=== PATIENT | male | born 1940 | race Caucasian/White ===

== ENCOUNTER 2019-05-04 13:30 | Inpatient (IN) | payer OTHER ==
[~2019-05-04] VITALS: Ht 172.7 cm; Wt 81.2 kg
--- NOTE | 2019-05-04 13:33 | NUR ---
PATIENT BIB EMS TO BED 02
[2019-05-04 13:36] VITALS: BP 126/78
--- NOTE | 2019-05-04 13:58 | NUR ---
PT DEBBIE FROM [facility] FOR FURTHER EVALUATION OF ABD PAIN X 2 DAYS. PT DENIES N/V/D; DENIES FEVER. AFEBRILE AT THIS TIME. LBM 05/04/19. VSS MED HX:HEPATIC CELLULAR CARCINOMA, PROSTATE CANCER, LIVER CIRRHOSIS, A-FIB, INGUINAL HERNIA, DVT, GASTRIC ULCERS, LEFT CLAVICULAR MASS. ALLERGIES: NKA
[2019-05-04] MEDS ORDERED: MORPHINE SULFATE 4 MG/ML SYR IVP ONE (14:20)
[2019-05-04 14:48] LABS: BASOPHILS # (AUTO) 0.1 K/uL (0.00-0.22); BASOPHILS % (AUTO) 0.8 % (0.0-2.0); EOSINOPHILS # (AUTO) 0.1 K/uL (0-0.4); HEMATOCRIT 34.6 % (36-52); HEMOGLOBIN 11.6 g/dL (12.0-18.0); LYMPHOCYTES # (AUTO) 0.9 K/uL (2.0-11.5); LYMPHOCYTES % (AUTO) 8.4 % (20.5-51.1); MEAN CORPUSCULAR HEMOGLOBIN 31 pg (27-31); MEAN CORPUSCULAR HGB CONC 33 g/dL (33-37); MEAN CORPUSCULAR VOLUME 92.3 fL (80-94); MONOCYTES # (AUTO) 1.1 K/uL (0.8-1.0); MONOCYTES % (AUTO) 10.4 % (1.7-9.3); NEUTROPHILS # (AUTO) 8.3 K/uL (1.8-7.7); NEUTROPHILS % (AUTO) 79.4 % (42.2-75.2); PLATELET COUNT (AUTO) 162 K/uL (140-450); RED BLOOD CELL COUNT(AUTO) 3.75 MIL/uL (4.20-6.10); RED CELL DISTRIBUTION WIDTH 19.9 % (11.6-13.7); WHITE BLOOD COUNT (AUTO) 10.4 K/uL (4.8-10.8)
[2019-05-04 15:08] LABS: ALBUMIN 1.5 g/dL (3.4-5.0); ANION GAP 12.5 (8-16); ASPARTATE AMINOTRANSFERASE 109 U/L (15-37); CARBON DIOXIDE 28.7 mmol/L (21-32); CHLORIDE 102 mmol/L (98-107); CREATININE 1.1 mg/dL (0.7-1.3); GLUCOSE 99 mg/dL (74-106); LIPASE 123 U/L (73-393); SODIUM SERUM 141 mmol/L (136-145); TOTAL BILIRUBIN 3.8 mg/dL (0.0-1.0); UREA NITROGEN, BLOOD 12 mg/dL (7-18)
[2019-05-04] MEDS ORDERED: NACL 0.9% 500 ML IV ONE (15:25)
[2019-05-04 15:30] LABS: POTASSIUM 2.2 mmol/L (3.5-5.1)
[2019-05-04] MEDS ORDERED: KCL 20 MEQ/WATER INJ PREMIX 200 ML IV ONE (17:15)
[2019-05-04] MEDS ORDERED: DILTIAZEM 25 MG/5 ML VIAL IVP ONE (17:50)
[2019-05-04 19:10] LABS: APPEARANCE,URINE CLEAR (CLEAR); BILIRUBIN,URINE NEGATIVE (NEGATIVE); BLOOD, URINE NEGATIVE (NEGATIVE); COLOR,URINE YELLOW (YELLOW); LEUKOCYTE ESTERASE ,URINE NEGATIVE (NEGATIVE); NITRITE, URINE NEGATIVE (NEGATIVE); UGLUCOSE NEGATIVE (NEGATIVE)
[2019-05-04 19:25] VITALS: BP 105/78
--- NOTE | 2019-05-04 19:25 | NUR ---
RECEIVED FROM ER VIA uiu. PT AWAKE, ALERT ORIENTED X 4. PT ON BEDREST. SKIN ASSESSMENT DONE W/ SKIN TEAR ON RIGHT FOREARM PRIOR TO ADMISSION AT UNIT NOTED. PICTURE TAKEN. H AND PHYSICAL DONE. W/ ONGOING K CL INFUSING TOTAL OF 40 MEQ'S PER ER NURSE. ORIENTED TO UNIT. BED IN LOWEST POSITION. FALL RISK. BED ALARM ON. WILL CONTINUE TO MONITOR Addendum: 05/05/19 at 0408 by Letty Baker RN AMEND TO ALERT ORIENTED X X 4 W/ SOME PERIODS OF FORGETFULNESS.
--- NOTE | 2019-05-04 19:26 | NUR ---
NOTED LEFT CLAVICULAR MASS/LUMP AND MULTIPLE RED BRUISES ON BILATERAL UE
--- NOTE | 2019-05-04 19:34 | NUR ---
Patient admitted to Telemetry Room 123A. Belongings list completed. Report to PARADISE Saenz. Pt in stable condition; transfer of care at this time.
--- NOTE | 2019-05-04 20:00 | NUR ---
1ST ATTEMPT TO CALL FUR FEEDER, NO RESPONSE
--- NOTE | 2019-05-04 21:00 | NUR ---
SCD DEVICE PLACED. PT TURNED AND CLEANED. PT ABLE TO HELP TURNING.
--- NOTE | 2019-05-04 21:00 | NUR ---
2ND ATTEMPT TO CALL TELEVISION EQUIPMENT OPERATOR; DR. ALEXANDRE AT [phone] AND TALKED TO AINSLEY, ANSWERING SERVICE.AWAITING RESPONSE
[2019-05-04] MEDS ORDERED: HYDROcodone/APAP 5/325 MG 1 TAB TAB PO PRN (21:05)
[2019-05-04] MEDS ORDERED: ACETAMINOPHEN 325 MG TAB PO PRN (21:05)
[2019-05-04] MEDS ORDERED: LORazepam 2 MG/ML VIAL IVP PRN (21:05)
[2019-05-04] MEDS ORDERED: ONDANSETRON 4 MG/2 ML VIAL IVP PRN (21:05)
[2019-05-04 22:27] LABS: CREATINE KINASE MB 1.2 ng/mL (0-3.6)
--- NOTE | 2019-05-04 23:00 | NUR ---
DR. KARO PEARSON RETURNED THE CALL HIMSELF. MG 1. 3 WAS REPORTED PER READING EARLIER AT THE ER BUT THERE WAS NO MGT FOR THIS. HE ORDERED: 4000MG/100 ML MG SO4 IV ONCE; AND MG OXIDE 400MG 1 TAB PO DAILY; AND D5NS AT 75 ML/HR. ORDERS CARRIED OUT
[2019-05-04] MEDS: HYDROcodone/APAP 5/325 MG 1 TAB TAB PO PRN (23:02)
--- NOTE | 2019-05-04 23:02 | NUR ---
PT' C/O OF PAIN LEFT ABDOMEN, WITH 6/10.MEDICATED W/ NORCO
[2019-05-04] MEDS: DEXT 5% /NACL 0.9% 1,000 ML IV SCH (23:25)
[2019-05-05] VITALS: BP 138/92
[2019-05-05] MEDS: MAG SULF 2000 MG/WATER PREMIX 100 ML IV SCH ×2 (00:12→01:28)
--- NOTE | 2019-05-05 01:12 | NUR ---
ERROR MADE IN PYXIS DOCUMENTATION, INFORMED THE CONTINUOUS MINING MACHINE COAL MINER AND CHARGE NURSE. I GOT 1 BAG FROM THE TELE UNIT PYXIS INSTEAD OF 2 BAGS. RADHA CHARGE NURSE GOT 1 BAG FROM THE MED SURG PYXIS. CONTINUOUS MINING MACHINE COAL MINER, [place] WENT TO THE TELE PYXIS AND GOT THE 3 BAGS OF MAGNESIUM SULFATE 2 GMS/50 ML EACH DISCREPANCIES IN THE PYXIS TO BE FIXED IN THE A.M. pLEASE NOTE THAT ONLY 2 BAGS OF 2000MG/50 ML (TOTAL OF 4000MG/100 ML) WAS GIVEN TO THE PT
[2019-05-05 04:00] VITALS: BP 133/95
--- NOTE | 2019-05-05 04:08 | NUR ---
PT KEPT ASKING ABOUT HIS SPECTROSCOPIST BUT SPECTROSCOPIST IS AT THE [facility] RIGHT NOW. CALLED [facility] LU[facility] AND TAKLED TO HER NURSE, DANGELO
--- NOTE | 2019-05-05 06:11 | NUR ---
PT SLEEPING, NO COMPLAINTS AT THIS TIME. PT IN STABLE CONDITION. ON TELE MONITOR FOR HIS UNCONTROLLED AFIB
--- NOTE | 2019-05-05 07:20 | NUR ---
Received report from pm nurse Letty. Pt resting in bed, awake, verbally responsive, respirations even & nonlabored in room air. Right AC IV intact with ongoing D5NS @ 75ml/hr. Call light within reach. Pt requesting for soda. FNS notified.
[2019-05-05 07:46] LABS: ANION GAP 8.2 (8-16); CARBON DIOXIDE 30.6 mmol/L (21-32); CHLORIDE 103 mmol/L (98-107); CREATININE 1.2 mg/dL (0.7-1.3); GLUCOSE 120 mg/dL (74-106); SODIUM SERUM 139 mmol/L (136-145); UREA NITROGEN, BLOOD 15 mg/dL (7-18)
[2019-05-05 07:48] LABS: POTASSIUM 2.8 mmol/L (3.5-5.1)
[2019-05-05 07:49] LABS: BASOPHILS % (AUTO) 0.4 % (0.0-2.0); EOSINOPHILS # (AUTO) 0.2 K/uL (0-0.4); EOSINOPHILS % (AUTO) 1.6 % (0.0-4.0); HEMATOCRIT 32.3 % (36-52); HEMOGLOBIN 11.2 g/dL (12.0-18.0); LYMPHOCYTES % (AUTO) 9.5 % (20.5-51.1); MEAN CORPUSCULAR HEMOGLOBIN 32 pg (27-31); MEAN CORPUSCULAR HGB CONC 35 g/dL (33-37); MEAN CORPUSCULAR VOLUME 93.3 fL (80-94); MONOCYTES # (AUTO) 1.2 K/uL (0.8-1.0); MONOCYTES % (AUTO) 11.6 % (1.7-9.3); NEUTROPHILS # (AUTO) 8.2 K/uL (1.8-7.7); NEUTROPHILS % (AUTO) 76.9 % (42.2-75.2); PLATELET COUNT (AUTO) 175 K/uL (140-450); RED BLOOD CELL COUNT(AUTO) 3.46 MIL/uL (4.20-6.10); RED CELL DISTRIBUTION WIDTH 19.7 % (11.6-13.7); WHITE BLOOD COUNT (AUTO) 10.6 K/uL (4.8-10.8)
[2019-05-05 08:37] LABS: MAGNESIUM 2.5 mg/dL (1.8-2.4); PHOSPHORUS 3.3 mg/dL (2.5-4.9)
[2019-05-05] MEDS: MAGNESIUM OXIDE 400 MG TAB PO SCH (08:37)
[2019-05-05] MEDS: KCL 20 MEQ/WATER INJ PREMIX 200 ML IV SCH ×2 (08:39→11:00)
--- NOTE | 2019-05-05 08:45 | NUR ---
Paged Dr. Mike Clark for potassium level of 2.8. Awaiting call back. Pt currently eating orange slices for breakfast. Offered pancakes & oatmeal, pt refused and states he has no appetite. No c/o discomfort at this time. Call light within reach.
--- NOTE | 2019-05-05 09:30 | NUR ---
Received phone call from Kristen Hearn asking about pt status. Brief update provided.
[2019-05-05 09:54] VITALS: BP 130/74
[2019-05-05] MEDS ORDERED: METO25TA PO (11:37)
[2019-05-05] MEDS ORDERED: FURO-572 PO (11:37)
[2019-05-05] MEDS ORDERED: MEGE40SU3 PO (11:37)
[2019-05-05] MEDS ORDERED: PANT40EC PO (11:37)
[2019-05-05] MEDS ORDERED: SUCR1TAB35 PO (11:37)
--- NOTE | 2019-05-05 11:45 | NUR ---
Pt requesting frequently for Coca-Cola. Provided with soda from kitchen. Pt verbalized he wants "Coca-Cola" brand. Pt contact persons Kristen & Shailesh notified, states they are not able to visit today but will come by tomorrow.
[2019-05-05 12:00] VITALS: BP 136/85
--- NOTE | 2019-05-05 12:25 | NUR ---
PATIENT HAS BEEN SCREENED AND CATEGORIZED MODERATE NUTRITION RISK. PATIENT WILL BE SEEN WITHIN 3-5 DAYS OF ADMISSION. 05/07/19 - 05/09/19 AMANDA CHANG MBA, RD
[2019-05-05] MEDS: DEXT 5% /NACL 0.9% 1,000 ML IV SCH (13:38)
--- NOTE | 2019-05-05 13:50 | NUR ---
Dr. Clark at bedside to assess pt. Pt aaox4, answers questions appropriately.
--- NOTE | 2019-05-05 14:28 | NUR ---
Pt aaox4, able to verbalized needs. Pt states he wants to be full code. Pt able to verbalized understanding that full code means CPR, intubation & defibrillation may be used accordingly. Hospital copy of POLST not signed by pt. Dr. Clark notified.
[2019-05-05 16:00] VITALS: BP 131/78
--- NOTE | 2019-05-05 17:37 | NUR ---
Pt with visitor at bedside who provided pt with few bottles of Coca-Cola & a bag of popcorn. Informed of dietary restrictions (cardiac diet). Pt & visitor verbalized understanding & agree to follow diet. Pt resting in bed, no c/o discomfort, respirations even & nonlabored. Call light within reach.
--- NOTE | 2019-05-05 19:15 | NUR ---
Bedside report given to pm nurse Renetta. Pt resting in bed, respirations even & nonlabored in room air, FLACC 0. Pt's grandson at bedside.
--- NOTE | 2019-05-05 19:16 | NUR ---
RECEIVED BEDSIDE REPORT FROM AM SHIFT RN IRMA, FOR PATIENT'S CONTINUITY OF CARE. PATIENT IS AWAKE, ALERT, TALKING TO FAMILY MEMBER AT BEDSIDE. PATIENT IS ON ROOM AIR, HAS RIGHT AC 20G IV RUNNING WITH D5NS AT 75 ML/HR. FALL PRECAUTION IS IN PLACE. BED IS IN LOW POSITION, SIDE RAILS ARE UP, AND CALL LIGHT WITHIN REACH. WILL MONITOR PATIENT THROUGHOUT SHIFT.
[2019-05-05 20:00] VITALS: BP 123/74
[2019-05-05] MEDS: PROMETH/CODEINE 6.25-10MG/5ML 5 ML UDC PO PRN (20:21)
--- NOTE | 2019-05-05 20:21 | NUR ---
PATIENT C/O COUGH AT NIGHT. REQUESTED FOR MEDICATION FOR PAIN OR COUGH. ADMINISTERED PO COUGH MEDICATION ORDERED. PATIENT TOLERATED IT WELL. VITAL SIGNS CHECKED AND CHARTED. WILL CONTINUE TO MONITOR PATIENT.
[2019-05-05 22:46] LABS: CREATINE KINASE MB 1.7 ng/mL (0-3.6)
[2019-05-05] MEDS: HYDROcodone/APAP 5/325 MG 1 TAB TAB PO PRN (23:13)
--- NOTE | 2019-05-05 23:13 | NUR ---
PATIENT C/O ABDOMINAL AREA/HERNIA AREA 03/18. ADMINISTERED PO PAIN MEDICATION ORDERED. PATIENT TOLERATED IT WELL. LIKES TO TAKE HALF FIRST AND WAIT FOR A FEW MINUTES, THEN TAKE THE OTHER HALF. WILL CONTINUE TO MONITOR PATIENT.
[2019-05-06] VITALS: BP 124/74
--- NOTE | 2019-05-06 | NUR ---
PATIENT C/O LEG DISCOMFORT. REQUESTED TO MASSAGE HIS LEGS. WHEEL POLISHER AND RN TAKE TURNS TO GIVE PATIENT MASSAGE ON BLE. HUNG NEW BAG OF D5NS RUNNING AT 75 ML/HR.
--- NOTE | 2019-05-06 00:35 | NUR ---
PATIENT REPEATEDLY TAKES OFF BREAKER TABLE WORKER AND REFUSED TO PUT IT BACK ON. EDUCATED PATIENT ON IMPORTANCE OF BREAKER TABLE WORKER, STILL REFUSED. NOTIFIED PARTY HOST/HOSTESS, AND RADIOLOGIC TECHNOLOGY INSTRUCTOR. WILL MONITOR PATIENT FREQUENTLY.
--- NOTE | 2019-05-06 02:20 | NUR ---
MADE ROUNDS. PATIENT IS AWAKE, WATCHING TV, COMPLAINING OF ITCHINESS. PER PATIENT, HE EXPERIENCES THIS EVERY SO OFTEN. NO NOTED HIVES OR ANY SKIN ABNORMALITIES, DT ITCHING. 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 WILL CONTINUE TO MONITOR PATIENT.
[2019-05-06] MEDS: PROMETH/CODEINE 6.25-10MG/5ML 5 ML UDC PO PRN ×3 (02:33→16:43)
--- NOTE | 2019-05-06 02:33 | NUR ---
PATIENT AWAKE, WATCHING TV, AND ON HIS CELL PHONE, CONTINUES TO HAVE DRY COUGH, REQUESTED FOR ANOTHER COUGH MEDICINE. ADMINISTERED PO COUGH MEDICATION ORDERED. ASSISTED VACUUM CLEANER REPAIRER FOR LINEN CHANGE. PATIENT TOLERATED IT WELL. PERFORMED BLE MASSAGE PER PATIENT'S REQUEST TO CALM DOWN RESTLESSNESS. INFORMED PATIENT THAT WE WILL ATTACH THE BAROMETERS CALIBRATOR AT 0400. PATIENT VERBALIZED UNDERSTANDING, BUT WANTS IT OFF AGAIN. COMPLAINS THAT EVERY TIME HE MOVES, IT COMES OFF.
[2019-05-06] MEDS: HYDROcodone/APAP 5/325 MG 1 TAB TAB PO PRN (03:53)
--- NOTE | 2019-05-06 03:53 | NUR ---
PATIENT C/O ABDOMINAL PAIN 03/18 WHEN COUGHING. REQUESTED FOR PAIN MEDICATION. ADMINISTERED PO PAIN MEDICATION ORDERED. PATIENT TOLERATED IT WELL. VITAL SIGNS CHECKED AND CHARTED. PATIENT REQUESTED, AND GIVEN ARM MASSAGE, PATIENT STATES THAT LEFT ARM AND BACK FEEL SORE. PATIENT KEEPS COUGHING THROUGHOUT THE NIGHT. Addendum: 05/06/19 at 0459 by Renetta Leon RN ADDITIONAL INFO: PATIENT ALSO REFUSED SCD PLACEMENT.
[2019-05-06 04:00] VITALS: BP 143/68
--- NOTE | 2019-05-06 06:39 | NUR ---
PATIENT IS AWAKE, LYING IN BED, ADMITTING PERSONNEL AT BEDSIDE. PATIENT GETTING AGITATED, RAISING VOICE, AND COMPLAINING. CAME IN TO EXPLAIN THE REASON FOR ADMITTING PERSONNEL TO BE IN HIS ROOM, AND DIVERT ATTENTION TO DE-ESCALATE ANY FURTHER SITUATION FROM HAPPENING. WILL ENDORSE TO AM SHIFT RN FOR PATIENT'S CONTINUITY OF CARE.
--- NOTE | 2019-05-06 07:31 | NUR ---
RECEIVED BEDSIDE REPORT FROM DAY SHIFT FOR PATIENT'S CONTINUITY OF CARE. PATIENT IS AWAKE, ALERT. PATIENT IS ON ROOM AIR, HAS RIGHT AC 20G IV RUNNING WITH D5NS AT 75 ML/HR. FALL PRECAUTION IS IN PLACE. BED IS IN LOW POSITION, SIDE RAILS ARE UP, AND CALL LIGHT WITHIN REACH. WILL MONITOR PATIENT THROUGHOUT SHIFT. Addendum: 05/07/19 at 0827 by Arlyn Moscoso RN PLEASE DISCARD. WRONG TIME.
--- NOTE | 2019-05-06 07:35 | NUR ---
Received bed side report from line person RN. Pt awake currently being repositioned and changed by MAJOR ACCOUNT REPRESENTATIVE. Pt not on tele monitor because pt refuses to be on tele monitor. Right AC 20G running D% NS at 755c/hr. Right forearm skin tear with adaptic dressing placed. On a cardiac diet, will continue to monitor
[2019-05-06] MEDS: MAGNESIUM OXIDE 400 MG TAB PO SCH (08:45)
--- NOTE | 2019-05-06 08:50 | NUR ---
Gave phenergan per MD order. Pt having continuous cough, non-productive. Will continue to monitor
--- NOTE | 2019-05-06 08:53 | NUR ---
pt took AM meds. pt states he has a radiation appointment at [facility] today. Pt refused blood draws this morning. will continue to monitor
--- NOTE | 2019-05-06 09:00 | NUR ---
Pt refuses to be on SCDs. Educated pt on the importance of promoting blood circulation. Pt still refuses.
[2019-05-06] MEDS ORDERED: POTASSIUM CHLORIDE 10 MEQ TABER PO SCH (10:40)
--- NOTE | 2019-05-06 10:41 | NUR ---
Per , he wants to continue home meds. Continued home meds and ordered 20meq BID.
[2019-05-06 10:47] VITALS: BP 160/85
[2019-05-06 13:37] VITALS: BP 146/95
--- NOTE | 2019-05-06 14:24 | NUR ---
Continuing home meds. Will wait for pharmacy to confirm. Called pharamcy to do blood draw on patient since he now does not refuse blood draws.
--- NOTE | 2019-05-06 14:47 | NUR ---
Blood draw done. Will wait for lab results.
[2019-05-06 15:08] LABS: BASOPHILS % (AUTO) 0.4 % (0.0-2.0); EOSINOPHILS # (AUTO) 0.2 K/uL (0-0.4); EOSINOPHILS % (AUTO) 2.2 % (0.0-4.0); HEMATOCRIT 30.6 % (36-52); HEMOGLOBIN 10.3 g/dL (12.0-18.0); LYMPHOCYTES # (AUTO) 0.7 K/uL (2.0-11.5); LYMPHOCYTES % (AUTO) 7.1 % (20.5-51.1); MEAN CORPUSCULAR HEMOGLOBIN 32 pg (27-31); MEAN CORPUSCULAR HGB CONC 34 g/dL (33-37); MEAN CORPUSCULAR VOLUME 93.6 fL (80-94); MONOCYTES % (AUTO) 10.2 % (1.7-9.3); NEUTROPHILS % (AUTO) 80.1 % (42.2-75.2); PLATELET COUNT (AUTO) 160 K/uL (140-450); RED BLOOD CELL COUNT(AUTO) 3.27 MIL/uL (4.20-6.10); RED CELL DISTRIBUTION WIDTH 19.4 % (11.6-13.7)
[2019-05-06] MEDS: DEXT 5% /NACL 0.9% 1,000 ML IV SCH ×2 (15:36)
[2019-05-06 15:46] LABS: ANION GAP 8.1 (8-16); CARBON DIOXIDE 27.4 mmol/L (21-32); CHLORIDE 104 mmol/L (98-107); CREATININE 1.1 mg/dL (0.7-1.3); GLUCOSE 142 mg/dL (74-106); POTASSIUM 3.5 mmol/L (3.5-5.1); SODIUM SERUM 136 mmol/L (136-145); UREA NITROGEN, BLOOD 12 mg/dL (7-18)
[2019-05-06] MEDS: PANTOPRAZOLE 40 MG TABEC PO SCH (16:35)
--- NOTE | 2019-05-06 16:44 | NUR ---
Gave pt phenergan PRN per MD order. Pt still having continuous cough, non-productive.
--- NOTE | 2019-05-06 16:44 | NUR ---
Pt A/O X4, denies pain, repositioned and changed. Will continue to monitor.
[2019-05-06 17:32] VITALS: BP 134/90
[2019-05-06] MEDS: SUCRALFATE 1 GM TAB PO SCH (17:54)
--- NOTE | 2019-05-06 19:30 | NUR ---
Gave bedside report to casino shift manager RN. Pt stable.
--- NOTE | 2019-05-06 19:31 | NUR ---
RECEIVED BEDSIDE REPORT FROM DAY SHIFT FOR PATIENT'S CONTINUITY OF CARE. PATIENT IS AWAKE, ALERT. PATIENT IS ON ROOM AIR, HAS RIGHT AC 20G IV RUNNING WITH D5NS AT 75 ML/HR. FALL PRECAUTION IS IN PLACE. BED IS IN LOW POSITION, SIDE RAILS ARE UP, AND CALL LIGHT WITHIN REACH. WILL MONITOR PATIENT THROUGHOUT SHIFT.
[2019-05-06 20:00] VITALS: BP 145/80
[2019-05-06] MEDS: MEGESTROL 400 MG/10 ML UDC PO SCH (21:13)
[2019-05-06] MEDS: METOPROLOL 25 MG TAB PO SCH (21:14)
[2019-05-06] MEDS: POTASSIUM CHLORIDE 10 MEQ TABER PO SCH (21:14)
[2019-05-06] MEDS: FUROSEMIDE 20 MG TAB PO SCH (21:14)
--- NOTE | 2019-05-06 21:14 | NUR ---
GIVEN SCHEDULED MEDS. PT TOLERATED WELL.
[2019-05-07] VITALS: BP 122/70
--- NOTE | 2019-05-07 | NUR ---
PT REFUSED CARAFATE. EXPLAINED BENEFIT AND RISK 3TIMES, PT STILL REFUSED.
--- NOTE | 2019-05-07 01:35 | NUR ---
LAB CALLED FOR MRSA POSITIVE NARES. ACTIVATED CONTACT PRECAUTION.
--- NOTE | 2019-05-07 03:45 | NUR ---
PT SLEEPING IN BED. NO ACUTE DISTRESS NOTED.
[2019-05-07 04:00] VITALS: BP 125/77
[2019-05-07] MEDS: DEXT 5% /NACL 0.9% 1,000 ML IV SCH (04:40)
[2019-05-07] MEDS: SUCRALFATE 1 GM TAB PO SCH ×3 (05:50→11:19)
--- NOTE | 2019-05-07 05:50 | NUR ---
PT REFUSED CARAFATE. EXPLAINED BENEFIT AND RISK 3TIMES, PT STILL REFUSED.
[2019-05-07] MEDS: PANTOPRAZOLE 40 MG TABEC PO SCH (06:47)
--- NOTE | 2019-05-07 06:47 | NUR ---
GIVEN PROTONIX DR. ORDERED. PT TOLERATED WELL. BED IN LOW POSITION. CALL LIGHT WITHIN REACH.
--- NOTE | 2019-05-07 07:29 | NUR ---
ENDORSED PT TO DAY SHIFT NURSE. PT IN STABLE CONDITION.
--- NOTE | 2019-05-07 07:30 | NUR ---
RECEIVED REPORT FROM DISCHARGING MACHINE OPERATOR NURSE.
--- NOTE | 2019-05-07 07:33 | NUR ---
RECEIVED PT FROM DRESSMAKER OR TAILOR NURSE, PT IS ASLEEP AND RESPIRATION IS EVEN, WITH SIDE RAILS UP AND CALL LIGHT WITHIN REACH, IV LINE ON THE RT AC G.20 WITH D5 NS INFUSING AT 75ML/HR INTACT. NO SIGN OF DISTRESS NOTED AND WILL MONITOR PT.
[2019-05-07 08:00] VITALS: BP 123/71
[2019-05-07] MEDS: POTASSIUM CHLORIDE 10 MEQ TABER PO SCH (08:52)
[2019-05-07] MEDS: MAGNESIUM OXIDE 400 MG TAB PO SCH (08:52)
[2019-05-07] MEDS: FUROSEMIDE 20 MG TAB PO SCH (08:52)
[2019-05-07] MEDS: METOPROLOL 25 MG TAB PO SCH (08:58)
[2019-05-07] MEDS: MEGESTROL 400 MG/10 ML UDC PO SCH (08:59)
[2019-05-07] MEDS ORDERED: CHLORHEXADINE GLUC 2% CLOTH TP SCH (09:00)
[2019-05-07] MEDS ORDERED: MUPIROCIN CA NASAL 2% 1GM TUBE NS SCH (09:00)
--- NOTE | 2019-05-07 09:00 | NUR ---
UPON GIVING MORNING MEDICATION, PATIENT REFUSED THE FOLLOWING: MUPIROCIN NASAL OINTMENT, METOPROLOL, AND MEGESTROL. PATIENT WAS EDUCATED ON THE BENEFITS OF THESE MEDICATIONS AND CONSEQUENCES OF NOT TAKING THEM. PATIENT STILL REFUSED. WILL CONTINUE TO MONITOR. PATIENT'S VITALS WNL, NO SIGNS OF RESPIRATORY DISTRESS.
--- NOTE | 2019-05-07 09:15 | NUR ---
PT WAS ASSISTED TO HIS BREAKFAST TRAY, CEREAL WAS GIVEN REQUESTED BY PT, BUT PT HAS A GRUMPY ATTITUDE.
--- NOTE | 2019-05-07 11:34 | NUR ---
PATIENT REFUSED SCHEDULED SUCRALFATE. WHILE TAKING VITALS, PATIENT IS EXHIBITING EXTREMELY RUDE/MEAN BEHAVIOR.
[2019-05-07 11:40] VITALS: BP 117/65
--- NOTE | 2019-05-07 12:56 | NUR ---
PT REFUSED TO EAT LUNCH AND SENT AWAY THE LUNCH TRAY. PT JUST WANTS TO DRINK COKE THAT WAS BROUGHT FROM HOME.
--- NOTE | 2019-05-07 13:50 | NUR ---
CALLED [facility] ADMISSION COORDINATOR PAYTON LUIS [phone], NOTIFIED HER THAT PATIENT IS DISCHARGE FROM THE HOSPITAL AND WILL BE BACK IN THEIR FACILITY TODAY.
--- NOTE | 2019-05-07 14:20 | NUR ---
SPOKE TO NUPUR AT [facility] VIA PHONE # [phone] AND GAVE REPORT ON PATIENT.
--- NOTE | 2019-05-07 14:24 | NUR ---
SPOKE ON THE PHONE WITH JUNIOR CANSECO, EMERGENCY CONTACT TO PATIENT, AND INFORMED HER OF PENDING TRANSFER OF PATIENT TO [facility].
--- NOTE | 2019-05-07 14:50 | NUR ---
[facility] ADMISSION COORDINATOR CALLED BACK, SHE SAID THEY ARE ON THEIR WAY TO SOCIAL WORK SPECIALIST PATIENT.
--- NOTE | 2019-05-07 15:40 | NUR ---
PATIENT DISCHARGED TO [facility]. PATIENT WAS PICKED UP BY YARN TWISTER WHO WENT WITH PATIENT AND HELD ON TO PATIENTS BELONGINGS. GAVE DISCHARGE INSTRUCTIONS TO PATIENT. PATIENT VERBALIZED UNDERSTANDING.
== END 2019-05-07 15:40 | DRG 640 ==
LOC: MED 13:30 → MTU 18:48
PROVIDERS: ADMIT Internal Medicine Cardiovascular Disease; ATTEND Internal Medicine Cardiovascular Disease
DX: E87.6 Hypokalemia (principal); E43 Unspecified severe protein-calorie malnutrition; C22.0 Liver cell carcinoma; I48.91 Unspecified atrial fibrillation; C61 Malignant neoplasm of prostate; E83.51 Hypocalcemia; D64.9 Anemia, unspecified; I10 Essential (primary) hypertension; I25.10 Atherosclerotic heart disease of native coronary artery without angina pectoris; Z85.46 Personal history of malignant neoplasm of prostate; Z85.05 Personal history of malignant neoplasm of liver; Z90.79 Acquired absence of other genital organ(s); Z90.49 Acquired absence of other specified parts of digestive tract; R74.0 Nonspecific elevation of levels of transaminase and lactic acid dehydrogenase [LDH]; E80.6 Other disorders of bilirubin metabolism; Z68.27 Body mass index [BMI] 27.0-27.9, adult
CPT/HCPCS: 36415; 71045; 80048; 80053; 81003; 82550; 82553; 83690; 83735; 84100; 84484; 85025; 87081; 93005; 96361; 96374; 96375; 99285; J2270; J3475; J3480; J3490; J7030; J7042; Q0092; Q9967